=== PATIENT | male | born 1940 | race Caucasian/White ===

== ENCOUNTER 2024-09-30 11:19 | Emergency (ER) | payer OTHER | END 2024-09-30 14:15 | disposition home or self-care (01) | LOC: ED 11:19 | DX: S01.01XA Laceration without foreign body of scalp, initial encounter (principal); I10 Essential (primary) hypertension; E11.9 Type 2 diabetes mellitus without complications; W18.30XA Fall on same level, unspecified, initial encounter; Z79.01 Long term (current) use of anticoagulants ==